=== PATIENT | female | born 1990 | race Caucasian/White ===

== ENCOUNTER 2016-09-17 16:07 | Emergency (ER) | payer OTHER ==
[2016-09-17 16:07] VITALS: BMI 24.5
[2016-09-17 16:37] VITALS: RESP 16
--- NOTE | 2016-09-17 17:05 | C.PDOC ---
History Of Present Illness 25 y/o female presents to the ED requesting test. Pt states her menses is 3 days late and is concerned; G2, 2 miscarriages in the past. She recently had 1 positive and 1 negative test at home. Pt reports history of antiphospholipid deficiency. Denies fever, vomiting, abdominal pain or any other complaints. Time Seen by Provider: 09/17/16 16:44 Chief Complaint (Nursing): Abdominal Pain History Per: Patient History/Exam Limitations: no limitations Severity: Mild Radiation Of Pain To:: None Quality Of Discomfort: denies: "Pain" Associated Symptoms: denies: Fever, Vomiting Exacerbating Factors: None Alleviating Factors: None Recent travel outside of the [place]: No Abnormal Vaginal Bleeding: No Past Medical History Reviewed: Historical Data, Nursing Documentation, Vital Signs Vital Signs: Last Vital Signs Temp 98.7 F 09/17/16 16:35 Pulse 78 09/17/16 16:35 Resp 16 09/17/16 16:35 BP 126/85 09/17/16 16:35 Pulse Ox 100 09/17/16 17:07 - Medical History PMH: Kidney Stones - [facility] Procedures IMMOBILIZ/WOUND ATTN NEC (03/09/13) INJECT/INFUSE NEC (01/07/15) Family History: States: Unknown Family Hx - Social History Hx Tobacco Use: No Hx Alcohol Use: No Hx Substance Use: No - Immunization History Hx Tetanus Toxoid Vaccination: No Hx Influenza Vaccination: No Hx Pneumococcal Vaccination: No Review Of Systems Except As Marked, All Systems Reviewed And Found Negative. Constitutional: Negative for: Fever Gastrointestinal: Negative for: Vomiting, Abdominal Pain Genitourinary: Negative for: Vaginal Bleeding Physical Exam - Physical Exam Appears: Non-toxic, No Acute Distress Skin: Warm, Dry, No Rash Head: Atraumatic, Normacephalic Chest: Symmetrical Cardiovascular: Rhythm Regular Respiratory: Normal Breath Sounds, No Rales, No Rhonchi, No Wheezing Gastrointestinal/Abdominal: Soft, No Tenderness Extremity: Bilateral: Atraumatic Neurological/Psych: Oriented x3 ED Course And Treatment - Laboratory Results Result Diagrams: 09/17/16 17:44 09/17/16 17:44 Lab Interpretation: Normal Urine POC: Negative O2 Sat by Pulse Oximetry: 100 (on room air) Pulse Ox Interpretation: Normal Progress Note: Plan: labs, urine preg. 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 - Scribe Statement The provider has reviewed the documentation as recorded by the Scribbrittany Proctor All medical record entries made by the Jeromyibbrittany were at my direction and personally dictated by me. I have reviewed the chart and agree that the record accurately reflects my personal performance of the history, physical exam, medical decision making, and the department course for this patient. I have also personally directed, reviewed, and agree with the discharge instructions and disposition.
[2016-09-17 17:48] LABS: BASO % 0.6 % (0.0-2.0); EOS # 0.1 K/uL (0.0-0.7); EOS % 1.3 % (0.0-4.0); LYMPH # 2.2 K/uL (1.0-4.3); LYMPH % 25.4 % (20.0-40.0); MEAN CELL VOLUME 90.1 fL (81.0-99.0); MEAN CORPUSCULAR HEMOGLOBIN 30.9 pg (27.0-31.0); MEAN CORPUSCULAR HGB CONC 34.3 g/dL (33.0-37.0); MEAN PLATELET VOLUME 8.7 fL (7.2-11.7); MONO # 0.7 K/uL (0.0-0.8); MONO % 8.2 % (0.0-10.0); RED CELL DISTRIBUTION WIDTH 13.2 % (11.5-14.5); WHITE BLOOD COUNT 8.5 K/uL (4.8-10.8)
[2016-09-17 17:53] LABS: RBC URINE 1 /hpf (0-3); URINE BILIRUBIN NEGATIVE (NEGATIVE); URINE BLOOD NEGATIVE (NEGATIVE); URINE COLOR Yellow (YELLOW); URINE GLUCOSE (UA) NORMAL (Normal); URINE KETONE NEGATIVE (NEGATIVE); URINE LEUKOCYTE ESTERASE TRACE Leu/uL (Negative); URINE PROTEIN NEGATIVE (NEGATIVE); URINE UROBILINOGEN NORMAL mg/dL (0.2-1.0); WBC URINE 1 /hpf (0-5)
[2016-09-17 17:59] LABS: CHLORIDE 99 mmol/L (98-107)
[2016-09-17 18:00] LABS: POTASSIUM 3.8 mmol/L (3.6-5.2); SODIUM 140 mmol/L (132-148)
[2016-09-17 18:02] LABS: GFR AFRICAN-AMERICAN > 60
[2016-09-17 18:03] LABS: BLOOD UREA NITROGEN 11 mg/dL (7-17); CALCIUM 8.7 mg/dl (8.6-10.4); CARBON DIOXIDE 26 mmol/L (22-30); GLUCOSE,RANDOM 85 mg/dL (65-105)
[2016-09-17 18:46] VITALS: BP 122/81; PULSE 69; TEMP 98.6; O2SAT 99
== END 2016-09-17 18:45 | disposition home or self-care (01) ==
LOC: C.ER 16:07
DX: Z32.02 Encounter for pregnancy test, result negative (principal)

== ENCOUNTER 2017-05-05 18:30 | Emergency (ER) | payer OTHER ==
[2017-05-05 18:39] VITALS: BMI 26.4
[2017-05-05 18:43] VITALS: RESP 18; TEMP 97.9
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
[2017-05-05 20:04] VITALS: BP 110/68; PULSE 85
[2017-05-06 08:17] VITALS: O2SAT 100
== END 2017-05-05 20:04 | disposition home or self-care (01) ==
LOC: C.ER 18:30
DX: S16.1XXA Strain of muscle, fascia and tendon at neck level, initial encounter (principal); V49.40XA Driver injured in collision with unspecified motor vehicles in traffic accident, initial encounter